=== PATIENT | male | born 1950 | race Caucasian/White ===

== ENCOUNTER 2018-10-21 14:19 | Inpatient (IN) | payer MEDICAID, OTHER ==
[~2018-10-21] VITALS: Ht 172.7 cm; Wt 79.8 kg
[2018-10-21] MEDS ORDERED: IBUPROFEN 600MG TABLET PO ONE (16:45)
[2018-10-21] MEDS ORDERED: TRAMADOL 50MG TABLET PO ONE (16:45)
[2018-10-21 18:41] LABS: HEMATOCRIT. 44.8 % (42.0-52.0); HEMOGLOBIN. 15.2 g/dL (14.0-18.0); MEAN CORPUSCULAR HEMOGLOBIN 32.5 pg (28.0-32.0); MEAN CORPUSCULAR VOLUME 95.7 fL (80.0-94.0); MEAN PLATELET VOLUME 9.1 fl (7.4-10.4); PLATELET 205 x1000/uL (130-400); RED BLOOD CELL COUNT 4.68 mill/uL (4.7-6.1); RED CELL DISTRIBUTION WIDTH 14.2 % (11.6-14.6)
[2018-10-21 18:48] LABS: CHLORIDE 105 mEq/L (98-107)
[2018-10-21 18:49] LABS: INR 1.2; PARTIAL THROMBOPLASTIN TIME 31.4 sec (23.4-31.0); PROTHROMBIN TIME 12.2 sec (9.1-11.1)
[2018-10-21 19:06] LABS: PLATELET ESTIMATE NORMAL
[2018-10-21] MEDS ORDERED: DOCUSATE SODIUM 100MG CAPSULE PO PRN (19:30)
[2018-10-21] MEDS ORDERED: ONDANSETRON HCL 4MG/2ML INJ IV PRN (19:30)
[2018-10-21] MEDS ORDERED: MORPHINE SULFATE 4 MG/ML CPJ (NOT FOR IM USE) IV PRN (19:30)
[2018-10-21] MEDS ORDERED: CLONIDINE 0.1MG TABLET PO PRN (19:30)
[2018-10-21] MEDS ORDERED: MAGNESIUM/ALUMINUM HYDROXIDE/SIMETHICONE 30ML UDC PO PRN (19:30)
[2018-10-21] MEDS ORDERED: ACETAMINOPHEN 325MG TABLET PO PRN (19:30)
[2018-10-21] MEDS ORDERED: IPRATROPIUM/ALBUTEROL 0.5-3(2.5)MG/3ML NEB INH PRN (19:30)
[2018-10-21 20:54] LABS: CHLORIDE 104 mEq/L (98-107)
[2018-10-21] MEDS: HYDROCODONE/ACETAMINOPHEN 5/325MG TABLET PO PRN (21:24)
[2018-10-21 22:35] LABS: CLARITY URINE CLEAR (CLEAR); COLOR URINE DARK YELLOW (YELLOW); KETONES URINE TRACE (NEGATIVE); LEUKOCYTE ESTERASE URINE NEGATIVE (NEGATIVE); NITRITE URINE NEGATIVE (NEGATIVE); OCCULT BLOOD URINE NEGATIVE (NEGATIVE); PH URINE 5.5 (4.5-8.0); PROTEIN URINE TRACE (NEGATIVE); SPECIFIC GRAVITY URINE 1.039 (1.005-1.030)
[2018-10-21 22:47] LABS: *BARBITURATES SCREEN URINE NEGATIVE (NEGATIVE); *BENZODIAZEPINES SCREEN URINE NEGATIVE (NEGATIVE)
[2018-10-21 22:48] LABS: *AMPHETAMINES SCREEN URINE NEGATIVE (NEGATIVE); *COCAINE SCREEN URINE NEGATIVE (NEGATIVE); CANNABINOID URINE SCREEN PRESUMTIVE POSITIVE (NEGATIVE); METHADONE URINE SCREEN NEGATIVE (NEGATIVE); OPIATES URINE SCREEN NEGATIVE (NEGATIVE); PHENCYCLIDINE URINE SCREEN NEGATIVE (NEGATIVE)
[2018-10-22] MEDS: SODIUM CHLORIDE 0.9% 1,000 ML IV SCH ×2 (00:26→12:42)
[2018-10-22 03:45] VITALS: BP 143/63
[2018-10-22 04:00] VITALS: BP 143/63
[2018-10-22] MEDS ORDERED: PRAV80TA21 PO (04:13)
[2018-10-22] MEDS ORDERED: CARV25TA47 MT (04:13)
[2018-10-22] MEDS ORDERED: HYDR25TA PO (04:13)
[2018-10-22] MEDS ORDERED: ISOS30TA6 PO (04:13)
[2018-10-22] MEDS ORDERED: ASPI-1158 PO (04:13)
[2018-10-22] MEDS ORDERED: CLOP75TA33 PO (04:13)
[2018-10-22 08:00] VITALS: BP 134/56
[2018-10-22] MEDS: HYDROCODONE/ACETAMINOPHEN 5/325MG TABLET PO PRN ×3 (09:23→21:00)
[2018-10-22 11:18] LABS: BASOPHILS % 0.5 % (0.0-2.0); EOSINOPHILS % 0.4 % (0.0-5.0); HEMATOCRIT. 41.6 % (42.0-52.0); HEMOGLOBIN. 14.3 g/dL (14.0-18.0); LYMPHOCYTES % 11.6 % (20.0-50.0); MEAN CORPUSCULAR HEMOGLOBIN 33.2 pg (28.0-32.0); MEAN CORPUSCULAR VOLUME 96.8 fL (80.0-94.0); MEAN PLATELET VOLUME 9.8 fl (7.4-10.4); MONOCYTES % 9.7 % (2.0-8.0); NEUTROPHILS % 77.8 % (40.0-76.0); PLATELET 188 x1000/uL (130-400); RED CELL DISTRIBUTION WIDTH 13.8 % (11.6-14.6)
[2018-10-22 12:00] VITALS: BP 132/60
[2018-10-22 12:30] LABS: PHOSPHORUS 2.3 mg/dL (2.5-4.9)
[2018-10-22] MEDS: NITROGLYCERIN OINT 1GM/INCH UDPKT TD SCH ×2 (14:55→22:49)
[2018-10-22 16:00] VITALS: BP 136/83
[2018-10-22 20:00] VITALS: BP 142/79
[2018-10-22] MEDS: METOPROLOL TARTRATE 25MG TABLET PO SCH (20:59)
[2018-10-23] VITALS (7 sets, daily range): BP systolic 128–144; BP diastolic 60–73
[2018-10-23] MEDS: HYDROCODONE/ACETAMINOPHEN 5/325MG TABLET PO PRN ×3 (04:39→17:55)
[2018-10-23] MEDS: NITROGLYCERIN OINT 1GM/INCH UDPKT TD SCH ×2 (06:27→14:37)
[2018-10-23 07:17] LABS: BASOPHILS % 0.4 % (0.0-2.0); EOSINOPHILS % 0.7 % (0.0-5.0); HEMATOCRIT. 41.1 % (42.0-52.0); HEMOGLOBIN. 13.9 g/dL (14.0-18.0); LYMPHOCYTES % 9.6 % (20.0-50.0); MEAN CORPUSCULAR HEMOGLOBIN 32.7 pg (28.0-32.0); MEAN CORPUSCULAR VOLUME 96.7 fL (80.0-94.0); MEAN PLATELET VOLUME 9.7 fl (7.4-10.4); MONOCYTES % 10.6 % (2.0-8.0); NEUTROPHILS % 78.7 % (40.0-76.0); PLATELET 188 x1000/uL (130-400); RED BLOOD CELL COUNT 4.25 mill/uL (4.7-6.1); RED CELL DISTRIBUTION WIDTH 14.3 % (11.6-14.6)
[2018-10-23 07:39] LABS: CHLORIDE 105 mEq/L (98-107)
[2018-10-23] MEDS: METOPROLOL TARTRATE 25MG TABLET PO SCH (08:33)
[2018-10-23] MEDS: SODIUM CHLORIDE 0.9% 1,000 ML IV SCH (15:45)
== END 2018-10-23 19:50 | disposition short-term general hospital (02) | DRG 340 ==
LOC: ER 14:19 → 6EST 18:43 → ENRESERV 10-22 01:12
PROVIDERS: ADMIT Internal Medicine; ATTEND Internal Medicine
DX: S72.001A Fracture of unspecified part of neck of right femur, initial encounter for closed fracture (principal); I11.9 Hypertensive heart disease without heart failure; J44.9 Chronic obstructive pulmonary disease, unspecified; D72.829 Elevated white blood cell count, unspecified; I25.118 Atherosclerotic heart disease of native coronary artery with other forms of angina pectoris; E78.5 Hyperlipidemia, unspecified; K46.9 Unspecified abdominal hernia without obstruction or gangrene; F12.90 Cannabis use, unspecified, uncomplicated; F17.210 Nicotine dependence, cigarettes, uncomplicated; Z95.1 Presence of aortocoronary bypass graft; Z79.02 Long term (current) use of antithrombotics/antiplatelets; Z79.82 Long term (current) use of aspirin; Y92.89 Other specified places as the place of occurrence of the external cause; Y93.55 Activity, bike riding; Y99.8 Other external cause status; V29.88XA Motorcycle rider (driver) (passenger) injured in other specified transport accidents, initial encounter
CPT/HCPCS: 36415; 71045; 72100; 73502; 73552; 80048; 80061; 80305; 83036; 83735; 84100; 93005; 93306; 93970; 99285; J2270